=== PATIENT | male | born 1970 | race Caucasian/White ===

== ENCOUNTER 2020-06-14 10:59 | Emergency (ER) | payer MEDICAID ==
[~2020-06-14] VITALS: Ht 175.3 cm; Wt 80.7 kg
--- NOTE | 2020-06-14 11:15 | NUR ---
PT BIBRA TO ER BED 04 C/O R HIP PAIN S/P SLIPPED AND FALL WHILE WASHING HIS CAR TODAY. PT DENIES HEAD TRAUMA. PT C/O 12/24 PAIN, UNABLE TO MOVE AFFECTED EXTREMITY. STABLE VITALS. AWAITING MD ARMENTA.
--- NOTE | 2020-06-14 11:36 | NUR ---
RADIOLOGY AT BEDSIDE FOR R HIP/ R FEMUR XRAY.
[2020-06-14] MEDS ORDERED: MORPHINE SULFATE INJ 4 MG/ML DISP.SYRIN ONE (11:39)
[2020-06-14] MEDS: MORPHINE SULFATE INJ 2 MG/ML DISP.SYRIN IV ONE (11:45)
[2020-06-14] MEDS ORDERED: MOXI3DRO13 RIGHTEYE (12:33)
[2020-06-14] MEDS ORDERED: PRED5DRO17 RIGHTEYE (12:33)
[2020-06-14 12:39] LABS: BASOPHILS % (AUTO) 0.4 % (0.0-2.0); EOSINOPHILS % (AUTO) 0.4 % (0.0-6.0); HEMATOCRIT 39 % (39-51); HEMOGLOBIN 13.1 g/dL (13.5-17.5); LYMPHOCYTES # (AUTO) 1.1 /CMM (0.8-4.8); LYMPHOCYTES % (AUTO) 11.4 % (20.0-44.0); MEAN CORPUSCULAR HGB CONC 34 g/dl (31.0-36.0); MEAN CORPUSCULAR VOLUME 89 fL (80-96); MONOCYTES # (AUTO) 0.5 /CMM (0.1-1.30); MONOCYTES % (AUTO) 5.1 % (2.0-12.0); NEUTROPHILS # (AUTO) 7.8 /CMM (1.8-8.9); NEUTROPHILS % (AUTO) 82.7 % (43.0-81.0); PLATELET COUNT (AUTO) 178 /CMM (150-450); RED BLOOD CELL COUNT(AUTO) 4.37 MIL/uL (4.5-6.0); WHITE BLOOD COUNT (AUTO) 9.4 K/uL (4.3-11.0)
--- NOTE | 2020-06-14 12:39 | NUR ---
CALLED DR. JONES ORTHO [phone]
[2020-06-14 12:49] LABS: CALCIUM, SERUM 8.7 mg/dL (8.5-10.1); CREATININE 1.1 mg/dL (0.6-1.3)
--- NOTE | 2020-06-14 14:20 | NUR ---
PT ACCEPTED AT [facility] UNDER DR. LYNN NO BED YET. EFRAIN [phone]
--- NOTE | 2020-06-14 14:29 | NUR ---
LAB CALLED PT COVID RESULT NEGATIVE (-)
[2020-06-14] MEDS ORDERED: HYDROMORPHONE 1 MG/1 ML DISP.SYRIN ONE ×2 (15:04→17:47)
[2020-06-14] MEDS: HYDROMORPHONE 1 MG/1 ML DISP.SYRIN IV ONE ×2 (15:08→17:58)
[2020-06-14] MEDS: IV NS 0.9% 1,000 ML IV ONE (15:10)
--- NOTE | 2020-06-14 16:15 | NUR ---
ASSIGNED ROOM GIVEN. 840.2 # FOR REPORT [phone] EXT [id number]
--- NOTE | 2020-06-14 16:28 | NUR ---
CALLED TRANSPORT ETA 1830 AM WEST
--- NOTE | 2020-06-14 16:40 | NUR ---
REPORT GIVEN TO ANDRA VILLEGAS. AWAITING TRANSFER. PT WILL GO TO ROOM 842.2
[2020-06-14 17:46] VITALS: BP 123/69
== END 2020-06-14 18:02 | disposition short-term general hospital (02) ==
LOC: ER 11:05
DX: S72.141A Displaced intertrochanteric fracture of right femur, initial encounter for closed fracture (principal); W19.XXXA Unspecified fall, initial encounter; Y93.9 Activity, unspecified; Y92.89 Other specified places as the place of occurrence of the external cause; Y99.0 Civilian activity done for income or pay; Z20.822 Contact with and (suspected) exposure to COVID-19
CPT/HCPCS: 36415; 73502; 73552; 80048; 85025; 85730; 86850; 87426; 96361; 96374; 96375; 96376; 99285; C9803; J1170 ×2; J2270; J7030 ×2